=== PATIENT | male | born 2000 | race American Indian/Alaskan Native ===

== ENCOUNTER 2022-03-08 13:11 | Emergency (ER) | payer OTHER ==
--- NOTE | 2022-03-08 15:51 | XRay Report ---
XR knee 3V LT INDICATION / CLINICAL INFORMATION: fall, knee pain COMPARISON: None available. FINDINGS: BONES / JOINT(S): No acute fracture or subluxation. No significant arthritis. No significant joint ef fusion. SOFT TISSUES: No significant abnormality. ADDITIONAL FINDINGS: None. IMPRESSION: No acute abnormality of the left knee. Signer Name: Olvin Mckinnon MD Signed: 03/08/2022 3:47 PM Workstation Name: [id number]
--- NOTE | 2022-03-08 16:22 | Emergency Department Report ---
ED Lower Extremity HPI - General Chief Complaint: Extremity Injury, Lower Stated Complaint: KNEE PAIN Time Seen by Provider: 03/08/22 15:11 Source: patient Mode of arrival: Wheelchair Limitations: Physical Limitation - History of Present Illness Initial Comments: 21 yo male presents to ed for evaluation of left knee injury. He states that he twisted his knee while playing basketball and has had pain since then. He states that he has been unable to ambulate on knee. MD Complaint: knee injury -: Gradual, days(s) (2-3) Injury: Knee: Left Place: home Severity: severe Severity scale (0 -10): 8 Worsens With: weight bearing, movement Context: fall Associated Symptoms: snap/pop sensation, unable to bear weight. denies: swel ling, numbness - Related Data Allergies Allergy/AdvReac Type Severity Reaction Status Date / Time No Known Allergies Allergy Verified 03/08/22 13:56 ED Review of Systems ROS: Stated complaint: KNEE PAIN Other details as noted in HPI Comment: All other systems reviewed and negative Constitutional: denies: chills, fever, weakness ENT: denies: congestion Respiratory: denies: shortness of breath Cardiovascular: denies: chest pain, palpitations Gastrointestinal: denies: abdominal pain, nausea, vomiting, diarrhea Genitourinary: denies: urgency, dysuria Musculoskeletal: denies: back pain Neurological: denies: headache, weakness ED Physical Exam - General Limitations: Physical Limitation General appearance: alert, in no apparent distress - Head Head exam: Present: atraumatic, normocephalic - Eye Eye exam: Present: normal appearance. Absent: conjunctival injection - Neck Neck exam: Present: normal inspection, full ROM. Absent: tenderness - Respiratory Respiratory exam: Absent: respiratory distress - Cardiovascular Cardiovascular Exam: Present: regular rate - GI/Abdominal GI/Abdominal exam: Present: soft, tenderness. Absent: distended - Expanded Lower Extremity Exam Left Knee exam: Present: normal inspection, tenderness. Absent: full ROM, swelling, abrasion, laceration, dislocation, erythema, effusion Lower Leg exam: Present: normal inspection Ankle exam: Present: normal inspection Foot/Toe exam: Present: normal inspection Neuro vascular tendon exam: Present: no vascular compromise. Absent: pulse deficit, abnormal cap refill, motor deficit, sensory deficit, extremity cold to touch, pallor Gait: Positive: unable to bear weight - Neurological Exam Neurological exam: Present: alert, oriented X3, CN II-XII intact. Absent: reflexes normal - Psychiatric Psychiatric exam: Present: normal affect, normal mood - Skin Skin exam: Present: warm, dry, intact, normal color ED Course Vital Signs 03/08/22 03/08/22 03/08/22 13:49 13:57 16:45 Temperature 98.6 F 98.6 F 98.2 F Pulse Rate 74 74 88 Respiratory 16 Rate Blood Pressure 109/73 109/73 112/86 [Right] O2 Sat by Pulse 99 99 100 Oximetry ED Lower Extremity MDM - Radiology Data Radiology results: report reviewed, image reviewed Left knee xray: FINDINGS: BONES / JOINT(S): No acute fracture or subluxation. No significant arthritis. No significant joint effusion. SOFT TISSUES: No significant abnormality. ADDITIONAL FINDINGS: None. IMPRESSION: No acute abnormality of the left knee. - Medical Decision Making 21 yo male presents to ed for evaluation of left knee injury. He states that he twisted his knee while playing basketball and has had pain since then. He states that he has been unable to ambulate on knee. Xray unremarkable. Patient given crutches and advised to follow up with his pcp or orthopedics and return to ed as needed. He verbalizes understanding of and agreement with plan of care. Critical care attestation.: If time is entered above; I have spent that time in minutes in the direct care of this critically ill patient, excluding procedure time. ED Disposition Clinical Impression: Fall Qualifiers: Encounter type: initial encounter Qualified Code(s): W19.XXXA - Unspecified fall, initial encounter Left knee pain Qualifiers: Chronicity: acute Qualified Code(s): M25.562 - Pain in left knee Disposition: 01 HOME / SELF CARE / HOMELESS Is pt being admited?: No Does the pt Need Aspirin: No Condition: Stable Instructions: How to Use Cold Therapy, [id number], Musculoskeletal Pain, Acute Knee Pain, Adult, Fhuz-za-[id number] Additional Instructions: Take medications as follow-up with orthopedics for further evaluation and management. Return to the emergency department as needed. Referrals: KATEY MALDONADO MD [Staff Physician] - 3-5 Days [facility] [Provider Group] - 3-5 Days Forms: Work/School Release Form(ED) Time of Disposition: 16:21
[2022-03-08 16:54] VITALS: BP 112/86
== END 2022-03-08 17:31 | disposition home or self-care (01) ==
LOC: ED 13:11
DX: M25.562 Pain in left knee (principal); W19.XXXA Unspecified fall, initial encounter; Y93.89 Activity, other specified; Y92.89 Other specified places as the place of occurrence of the external cause; Y99.8 Other external cause status
CPT/HCPCS: 99283